=== PATIENT | male | born 1975 ===

== ENCOUNTER 2017-03-18 17:57 | Emergency (ER) | payer OTHER ==
[2017-03-18 18:29] VITALS: BMI 24.3
[2017-03-18 18:32] VITALS: BP 109/73; PULSE 58; RESP 19; TEMP 98.6; O2SAT 97
--- NOTE | 2017-03-18 18:44 | ED PDOC ---
Arrival/HPI - General Chief Complaint: Back Pain Time Seen by Provider: 03/18/17 18:38 Historian: Patient - History of Present Illness Narrative History of Present Illness (Text): 03/18/17 18:41 41yo male present with complaint of lower back pain since yesterday. Pain is nonradiating, spasm and worse with movement and after sitting for extended period. States he exercised yesterday and played basketball, not sure if he injured his back while doing these activities. States he applied topical ointment and took 200mg of Ibuprofen without relieve. Denies trauma, focal weakness, urinary/fecal incontinence, abdominal pain, saddle anesthesia, urinary symptoms, hematuria, any other complaint. Past Medical History - Provider Review Nursing Documentation Reviewed: Yes - Infectious Disease Hx of Infectious Diseases: None - Psychiatric Hx Substance Use: No - Anesthesia Hx Anesthesia: No Family/Social History - Physician Review Nursing Documentation Reviewed: Yes Family/Social History: Unknown Family HX Smoking Status: Light Smoker < 10 Cigarettes Daily Hx Alcohol Use: No Hx Substance Use: No Allergies/Home Meds Allergies/Adverse Reactions: Allergies No Known Allergies Allergy (Verified 03/18/17 18:29) Review of Systems - Physician Review All systems were reviewed & negative as marked: Yes - Review of Systems Constitutional: Normal Eyes: Normal ENT: Normal Respiratory: Normal Cardiovascular: Normal Gastrointestinal: Normal Genitourinary Male: Normal Musculoskeletal: Back Pain Skin: Normal Neurological: Normal Endocrine: Normal Hemo/Lymphatic: Normal Psychiatric: Normal Physical Exam - Physical Exam Physical Exam Limitations: Altered Mental Status, Clinical Condition, Intoxication, Psychotic, Uncooperative, Other Vital Signs Reviewed: Yes Vital Signs Temp Pulse Resp BP Pulse Ox 03/18/17 18:31 98.6 F 58 L 19 109/73 97 Temperature: Afebrile Blood Pressure: Normal Pulse: Regular Respiratory Rate: Normal Appearance: Positive for: Well-Appearing, Non-Toxic, Comfortable Pain Distress: None Mental Status: Positive for: Alert and Oriented X 3 - Systems Exam Head: Present: Atraumatic, Normocephalic Pupils: Present: PERRL Extroacular Muscles: Present: EOMI Conjunctiva: Present: Normal Mouth: Present: Moist Mucous Membranes Neck: Present: Normal Range of Motion Respiratory/Chest: Present: Clear to Auscultation, Good Air Exchange. No: Respiratory Distress, Accessory Muscle Use Cardiovascular: Present: Regular Rate and Rhythm, Normal S1, S2. No: Murmurs Abdomen: Present: Normal Bowel Sounds. No: Tenderness, Distention, Peritoneal Signs Back: Present: Paraspinal Tenderness (Right sided paralumbar tenderness), Pain with Leg Raise (B/L) Upper Extremity: Present: Normal Inspection. No: Cyanosis, Edema Lower Extremity: Present: Normal Inspection. No: Edema Neurological: Present: GCS=15, CN II-XII Intact, Speech Normal Skin: Present: Warm, Dry, Normal Color. No: Rashes Psychiatric: Present: Alert, Oriented x 3, Normal Insight, Normal Concentration Medical Decision Making ED Course and Treatment: 03/18/17 19:38 PT was ambulatory and neurologically intact in ED LS Xray - Negative Result was DW the pt. He was DC home with a rx of Ibuprofen and flexeril. Referred to ortho. - RAD Interpretation Radiology Orders: 03/18/17 18:50 LS SPINE WITH OBL > 18 YRS OLD [RAD] Stat - Medication Orders Current Medication Orders: Discontinued Medications Diazepam (Valium) 5 mg PO ONCE ONE PRN Reason: Protocol Stop: 03/18/17 18:40 Ketorolac Tromethamine (Toradol) 60 mg IM STAT STA Stop: 03/18/17 18:39 Disposition/Present on Arrival - Present on Arrival Any Indicators Present on Arrival: No History of DVT/PE: No History of Uncontrolled Diabetes: No Urinary Catheter: No History of Decub. Ulcer: No History Surgical Site Infection Following: None - Disposition Have Diagnosis and Disposition been Completed?: Yes Diagnosis: Back strain Disposition: HOME/ ROUTINE Disposition Time: 19:30 Patient Plan: Discharge Patient Problems: Current Active Problems Problem Status Onset Back strain Acute Condition: STABLE Discharge Instructions (ExitCare): Back Pain (ED) Additional Instructions: Rest and apply warm compress/shower to area Follow up with your Orthopedist Return to ED for any new or worsening symptoms Prescriptions: Cyclobenzaprine [Cyclobenzaprine HCl] 10 mg PO TID #12 tab Naproxen [Naprosyn] 500 mg PO BID #20 tab Referrals: PCP,NO [Primary Care Provider] - Follow up with primary Garland Sousa DO [Staff Provider] - Follow up with primary Forms: WORK NOTE
--- NOTE | 2017-03-19 08:06 | RAD ---
PROCEDURE: Radiographs of the Lumbar Spine. HISTORY: back pain COMPARISON: No prior. FINDINGS: BONES: Normal alignment. No listhesis. No fracture. DISC SPACES: Unremarkable. OTHER FINDINGS: None. IMPRESSION: Unremarkable radiographs of the lumbar spine.
== END 2017-03-18 19:56 | disposition home or self-care (01) ==
LOC: ED 17:57
DX: S39.012A Strain of muscle, fascia and tendon of lower back, initial encounter (principal); X58.XXXA Exposure to other specified factors, initial encounter; F17.210 Nicotine dependence, cigarettes, uncomplicated
CPT/HCPCS: 72110; 96372; 99282; J1885

== ENCOUNTER 2017-04-27 23:40 | Emergency (ER) | payer OTHER ==
[2017-04-27 23:41] VITALS: BMI 24.3
--- NOTE | 2017-04-28 00:58 | ED PDOC ---
Arrival/HPI - General Chief Complaint: Headache Time Seen by Provider: 04/28/17 00:17 Historian: Patient, Family, EMS - History of Present Illness Narrative History of Present Illness (Text): 04/28/17 00:50 Alex Rankin is a 41 year old male, who denies any previous medical history, who presents to the emergency department complaining of abdominal pain that began around 10:30 pm. Family reports patient began to vomit and then began to c/o of a severe headache that felt "explosive. When patient was getting up, he felt weakness and a numbness sensation on his right leg. No other focal weakness or speech or visual disturbance. Patient denies chest pain, shortness of breath, fever, chills, cough, diarrhea, dizziness or other complaints. He no longer has any abdominal pain. Time/Duration: 1-3 hours Symptom Onset: Sudden Symptom Course: Unchanged Quality: Other (numbness on legs) Context: Home Associated Symptoms (Text): headache, vomiting, weakness and numbness on bilateral legs, mainly on right leg Past Medical History - Provider Review Nursing Documentation Reviewed: Yes - Infectious Disease Hx of Infectious Diseases: None - Psychiatric Hx Substance Use: No - Anesthesia Hx Anesthesia: No Family/Social History - Physician Review Nursing Documentation Reviewed: Yes Family/Social History: Unknown Family HX Smoking Status: Light Smoker < 10 Cigarettes Daily Hx Alcohol Use: No Hx Substance Use: No Allergies/Home Meds Allergies/Adverse Reactions: Allergies No Known Allergies Allergy (Verified 04/27/17 23:59) Home Medications: Home Meds Medication Instructions Recorded Confirmed No Known Home Med 04/27/17 04/27/17 Review of Systems - Review of Systems Constitutional: absent: Fevers Eyes: absent: Vision Changes Respiratory: absent: SOB Cardiovascular: absent: Chest Pain Gastrointestinal: Abdominal Pain (resolved), Nausea, Vomiting Genitourinary Male: absent: Dysuria, Frequency Musculoskeletal: Other (weakness and numbness on bilateral legs) Neurological: Headache, Dizziness, Focal Weakness (R leg). absent: Speech Changes, Facial Droop Physical Exam Vital Signs Temp Pulse Resp BP Pulse Ox 04/28/17 01:53 99 H 152/98 H 04/28/17 01:40 96 H 18 152/98 H 98 04/28/17 01:25 92 H 20 152/101 H 99 04/28/17 01:10 99 H 20 154/93 H 97 04/28/17 00:01 98.1 F 90 17 169/103 H 99 Temperature: Afebrile Blood Pressure: Hypertensive Pulse: Regular Respiratory Rate: Normal Appearance: Positive for: Ill-Appearing Pain Distress: Moderate Mental Status: Positive for: other (drowsy but fully arousable and oriented x 3) - Systems Exam Head: Present: Atraumatic, Normocephalic Pupils: Present: PERRL Extroacular Muscles: Present: EOMI Conjunctiva: Present: Normal Mouth: Present: Moist Mucous Membranes Pharnyx: Present: Normal. No: ERYTHEMA, EXUDATE Neck: Present: Normal Range of Motion Respiratory/Chest: Present: Clear to Auscultation, Good Air Exchange. No: Respiratory Distress, Accessory Muscle Use Cardiovascular: Present: Regular Rate and Rhythm, Normal S1, S2. No: Murmurs Abdomen: Present: Normal Bowel Sounds. No: Tenderness, Distention, Peritoneal Signs Back: Present: Normal Inspection Upper Extremity: Present: Normal Inspection. No: Cyanosis, Edema Lower Extremity: Present: Normal Inspection, Other (strength is 5/5). No: Edema Neurological: Present: GCS=15, CN II-XII Intact, Speech Normal, Other (Motor function is 5-/5 on right leg but no drift at 5 seconds and 5/5 on the left) Skin: Present: Warm, Dry, Normal Color. No: Rashes Psychiatric: Present: Oriented x 3, Normal Insight, Normal Concentration Medical Decision Making ED Course and Treatment: 04/28/17 Impression: 41 year old male with severe headache, and numbness of the right lower extremity. Differentials: subarachnoid hemrrhage vs ischemic CVA Plan: -- EKG -- Chest X-ray -- CT Head without contrast -- Labs -- Reassess and disposition Prior Visits: Notes and results from previous visits were reviewed. On 03/18/2017 patient came in complaining of back pain. Patient was discharged home. Progress Notes: 04/28/17 00:55 Code stroke was called. Case was discussed with Dr. Xander Womack - patient with low NIHSS of 2 - not a tpa candidate. CT pending. 04/28/17 01:30 CT Head Without Intravenous Contrast FINDINGS: Brain: Large acute intraparenchymal hematoma in the left parietal lobe measuring 5.6 x 4.0 cm. There is surrounding vasogenic edema. There is hemorrhage within the interhemispheric fissure and along the tentorium bilaterally consistent with subdural hemorrhage. There is subarachnoid hemorrhage predominantly in the suprasellar and the ambient cistern. Mild dilatation of the lateral, third and fourth ventricles. Bones/joints: Unremarkable. No acute fracture. Soft tissues: Unremarkable. Sinuses: Unremarkable as visualized. No acute sinusitis. Mastoid air cells: Unremarkable as visualized. No mastoid effusion. IMPRESSION: Large acute intraparenchymal hematoma in the left parietal lobe measuring 5.6 x 4.0 cm. There is surrounding vasogenic edema. There is hemorrhage within the interhemispheric fissure and along the tentorium bilaterally consistent with subdural hemorrhage. There is subarachnoid hemorrhage predominantly in the suprasellar and the ambient cistern. Mild dilatation of the lateral, third and fourth ventricles. 04/28/17 01:56 CT results as noted. Started on nicardipine. Patient with very signficant bleed in need of neurosurgical intervention. Case discussed with Dr. Pinedo from [place] neurosurgery. He recommended continuing with Nicardipine drip and titration of BP to less than 120. Patient is accepted to transfer. 04/28/17 02:23 Patient's signed consent for transfer to [facility]. 04/28/17 02:25 - Critical Care Critical Care Minutes: 30 minutes - Lab Interpretations Lab Results: 04/28/17 01:10 04/28/17 01:10 Lab Results 04/28/17 01:10: Blood Type O POSITIVE, Antibody Screen Negative, BBK History Checked No verified bt 04/28/17 01:10: Sodium 141, Potassium 3.7, Chloride 104, Carbon Dioxide 19 L, Anion Gap 22 H, BUN 14, Creatinine 0.8, Est GFR ( Amer) > 60, Est GFR ( Non-Af Amer) > 60, Random Glucose 155 H, Calcium 9.5, Total Bilirubin 0.4, AST 46, ALT 55, Alkaline Phosphatase 81, Lactate Dehydrogenase 489, Total Creatine Kinase 168, Troponin I < 0.01, Total Protein 8.4 H, Albumin 5.2 H, Globulin 3.2 , Albumin/Globulin Ratio 1.6, Triglycerides 254 H, Cholesterol 225 H, LDL Cholesterol Direct 110, HDL Cholesterol 43, Lipase 26 04/28/17 01:10: PT 10.6, INR 0.98, APTT 25.4 04/28/17 01:10: WBC 17.7 H, RBC 4.44, Hgb 14.8, Hct 41.2 L, MCV 92.8, MCH 33.3, MCHC 35.9, RDW 12.4, Plt Count 244, MPV 8.5, Gran % 86.9 H, Lymph % (Auto) 9.2 L , [place] % (Auto) 3.7, Eos % (Auto) 0.1 L, Baso % (Auto) 0.1, Gran # 15.40 H, Lymph # 1.6, [place] # 0.7 H, Eos # 0.0, Baso # 0.02, Corrected WBC (Man) Cancelled , Neutrophils % (Manual) Cancelled, Band Neutrophils % Cancelled, Lymphocytes % (Manual) Cancelled, Atypical Lymphs % Cancelled, Monocytes % (Manual) Cancelled , Eosinophils % (Manual) Cancelled, Basophils % (Manual) Cancelled, Metamyelocytes % Cancelled, Myelocytes % Cancelled, Promyelocytes % Cancelled, Nucleated RBC % Cancelled, Hypersegmented Polys Cancelled, Immature Lymphocytes Cancelled, Blast Cells Cancelled, Smudge Cells Cancelled, Toxic Granulation Cancelled, Dohle Bodies Cancelled, Raissa Rods Cancelled, Platelet Evaluation Cancelled, Plt Clumps, EDTA Cancelled, Large Platelets Cancelled, Giant Platelets Cancelled, Polychromasia Cancelled, Hypochromasia Cancelled, Hyperchromasia Cancelled, Poikilocytosis (manual Cancelled, Basophilic Stippling Cancelled, Anisocytosis (manual) Cancelled, Microcytosis (manual) Cancelled, Macrocytosis (manual) Cancelled, Spherocytes Cancelled, Sickle Cells Cancelled, Target Cells Cancelled, Tear Drop Cells Cancelled, Ovalocytes Cancelled, Stomatocytes Cancelled, Helmet Cells Cancelled, [place] Rings Cancelled , [place] Cells Cancelled, Acanthocytes (Spur) Cancelled, Rouleaux Cancelled, Schistocytes Cancelled I have reviewed the lab results: Yes - RAD Interpretation Radiology Orders: 04/28/17 00:51 HEAD W/O (CODE STROKE) [CT] Stat CHEST PORTABLE [RAD] Stat - EKG Interpretation Interpreted by ED Physician: Yes Type: 12 lead EKG - Medication Orders Current Medication Orders: Nicardipine HCl (Cardene Iv Premix) 20 mg in 200 mls @ 50 mls/hr IV .Q4H PRN; Protocol; 5 MG/HR PRN Reason: TITRATE PER MD ORDER Last Admin: 04/28/17 01:53 Dose: 50 mls/hr Discontinued Medications Ondansetron HCl (Zofran Inj) 4 mg IVP STAT STA Stop: 04/28/17 01:14 Last Admin: 04/28/17 01:18 Dose: 4 mg NIHSS Scale ([place]) Time Performed: 00:17 - How Severe is the Stoke Baseline Level of Consciousness: 1=Drowsy LOC to Questions: 0=Both comments correct LOC to commands: 0=Obeys both correctly Best Gaze: 0=Normal Visual: 0=No visual loss Facial: 0=Normal Motor Arm - Left: 0=No drift Motor Arm - Right: 0=No drift Motor Leg - Left: 0=No drift Motor Leg - Right: 0=No drift Limb Ataxia: 0=Absent Sensory: 1=Mild to moderate loss Best Language: 0=No aphasia Dysarthia: 0=Normal articulation Extinction & Inattention (Neglect): 0=Normal, no object Score: 2 Risk Level: Minor Stroke Risk - Scribe Statement The provider has reviewed the documentation as recorded by the Scribe 04/28/2017 Nikki Hughes Provider Scribe Attestation: All medical record entries made by the Scribe were at my direction and personally dictated by me. I have reviewed the chart and agree that the record accurately reflects my personal performance of the history, physical exam, medical decision making, and the department course for this patient. I have also personally directed, reviewed, and agree with the discharge instructions and disposition. Disposition/Present on Arrival - Present on Arrival Any Indicators Present on Arrival: No History of DVT/PE: No History of Uncontrolled Diabetes: No Urinary Catheter: No History of Decub. Ulcer: No History Surgical Site Infection Following: None - Disposition Have Diagnosis and Disposition been Completed?: Yes Diagnosis: Intraparenchymal hemorrhage of brain, Subarachnoid hemorrhage Disposition: Transfer [facility] Disposition Time: 01:30 Patient Plan: Transfer To ([facility]) Condition: CRITICAL Referrals: [facility] Aysha Alarcon, [Primary Care Provider] - Follow up with primary Forms: [employer] (Irish)
[2017-04-28 01:34] LABS: BASO # 0.02 K/mm3 (0.0-2.0); BASO % 0.1 % (0.0-3.0); EOS % 0.1 % (1.5-5.0); GRAN # 15.4 (1.4-6.5); GRAN % 86.9 % (50.0-68.0); HEMATOCRIT 41.2 % (42.0-52.0); LYMPH # 1.6 (1.2-3.4); LYMPH % 9.2 % (22.0-35.0); MEAN CELL VOLUME 92.8 fl (80.0-105.0); MEAN CORPUSCULAR HEMOGLOBIN 33.3 pg (25.0-35.0); MEAN CORPUSCULAR HGB CONC 35.9 g/dl (31.0-37.0); MEAN PLATELET VOLUME 8.5 fl (7.0-11.0); MONO # 0.7 (0.1-0.6); MONO % 3.7 % (1.0-6.0); RED CELL DISTRIBUTION WIDTH 12.4 % (11.5-14.5); WHITE BLOOD COUNT 17.7 10^3/ul (4.5-11.0)
[2017-04-28] MEDS ORDERED: Nicardipine 20 MG/200 ML 20 MG/200 ML BAG IV PRN (01:37)
[2017-04-28 01:38] LABS: ALB/GLOB RATIO 1.6 (1.1-1.8); ALKALINE PHOSPHATASE 81 U/L (38-133); ALT/SGPT 55 U/L (7-56); AST/SGOT 46 U/L (15-59); BILIRUBIN,TOTAL 0.4 mg/dL (0.2-1.3); BLOOD UREA NITROGEN 14 mg/dL (7-21); CALCIUM 9.5 mg/dL (8.4-10.5); CARBON DIOXIDE 19 mmol/L (21-33); CHOLESTEROL 225 mg/dL (130-200); GFR AFRICAN-AMERICAN > 60; GLUCOSE,RANDOM 155 mg/dL (70-110); LIPASE 26 U/L (23-300); POTASSIUM 3.7 mmol/L (3.6-5.0); SODIUM 141 mmol/L (132-148); TOTAL PROTEIN 8.4 g/dL (5.8-8.3)
[2017-04-28 01:39] LABS: INR 0.98 (0.93-1.08); PARTIAL THROMBOPLASTIN TIME 25.4 Seconds (23.7-30.8)
[2017-04-28 01:44] LABS: CHLORIDE 104 mmol/L (98-107)
[2017-04-28 01:50] VITALS: O2SAT 98
[2017-04-28 01:53] LABS: TROPONIN I < 0.01 ng/mL
[2017-04-28 02:20] VITALS: BP 156/85; PULSE 100; RESP 20; TEMP 98.2
[2017-04-28] MEDS ORDERED: Morphine 4 mg/ml ISec IVP STA (02:30)
--- NOTE | 2017-04-28 07:48 | RAD ---
HISTORY: headache, dizzy COMPARISON: No prior. FINDINGS: LUNGS: No active pulmonary disease. PLEURA: No significant pleural effusion identified, no pneumothorax apparent. CARDIOVASCULAR: Normal. OSSEOUS STRUCTURES: No significant abnormalities. VISUALIZED UPPER ABDOMEN: Normal. OTHER FINDINGS: None. IMPRESSION: No active disease.
--- NOTE | 2017-04-28 09:42 | CT ---
PROCEDURE: CT HEAD WITHOUT CONTRAST. HISTORY: Code Stroke COMPARISON: None available. TECHNIQUE: Axial computed tomography images were obtained through the head/brain without intravenous contrast. Radiation dose: Total exam DLP = 824 mGy-cm. This CT exam was performed using one or more of the following dose reduction techniques: Automated exposure control, adjustment of the mA and/or kV according to patient size, and/or use of iterative reconstruction technique. FINDINGS: HEMORRHAGE: There is a large acute intraparenchymal hemorrhage in the left parietal lobe measuring 5.6 x 4 cm. There is also hemorrhage within the sub arachnoid space in the interhemispheric fissures and extending to the basal cisterns. BRAIN: There is no significant midline shift. There is effacement of sulci in the left hemisphere. VENTRICLES: There is mild dilatation of the ventricles including the temporal horns consistent with early hydrocephalus. There is no intraventricular hemorrhage seen. CALVARIUM: Unremarkable. PARANASAL SINUSES: Unremarkable as visualized. No significant inflammatory changes. MASTOID AIR CELLS: Unremarkable as visualized. No inflammatory changes. OTHER FINDINGS: The report concurs with the preliminary [facility] report IMPRESSION: There is a large acute intraparenchymal hemorrhage in the left parietal lobe measuring 5.6 x 4 cm. There is also hemorrhage within the sub arachnoid space in the interhemispheric fissures and extending to the basal cisterns.
--- NOTE | 2017-04-28 19:30 | CARD ---
APPROVED REPORT EKG Measurement Heart [id number] CT [id number] <Conclusion> Normal sinus rhythm Nonspecific ST abnormality Prolonged QT Abnormal ECG
== END 2017-04-28 02:44 | disposition short-term general hospital (02) ==
LOC: ED 23:40
DX: I60.9 Nontraumatic subarachnoid hemorrhage, unspecified (principal); I61.9 Nontraumatic intracerebral hemorrhage, unspecified; F17.210 Nicotine dependence, cigarettes, uncomplicated
CPT/HCPCS: 70450; 71010; 80053; 80061; 82550; 82948; 83036; 83615; 83690; 84484; 85025; 85610; 85730; 86850; 86900; 93005; 96374; 96375; 99291; J2270; J2405